=== PATIENT | male | born 1960 | race Caucasian/White ===

== ENCOUNTER 2023-03-12 05:03 | Inpatient (IN) | payer OTHER ==
[~2023-03-12] VITALS: Ht 177.8 cm; Wt 99.3 kg
[2023-03-12] VITALS (16 sets, daily range): BP systolic 111–163; BP diastolic 78–94; PULSE 61–80; RESP 14–22; TEMP 97.1–98; O2SAT 93–98
[2023-03-12] MEDS ORDERED: HEPARIN SODIUM (PORCINE) 5000 UNITS/ML 1ML VIAL IV ONE (05:15)
[2023-03-12] MEDS ORDERED: ONDANSETRON HCL 4 MG/2 ML VIAL IV ONE (05:15)
[2023-03-12] MEDS ORDERED: MORPHINE SULFATE 4 MG/ML SYR/VIAL IV ONE (05:15)
[2023-03-12 05:21] LABS: Basophils # (auto) 0.1 10 ^3/uL (0-0.2); Basophils % (auto) 0.8 % (0.0-2.0); Eosinophils # (auto) 0.1 10 ^3/uL (0-0.8); Eosinophils % (auto) 1.9 % (0.0-7.0); Hematocrit 44.8 % (41.0-53.0); Hemoglobin 15.7 g/dL (13.5-17.5); Lymphocytes # (auto) 1.5 10 ^3/uL (0.4-5.4); Lymphocytes % (auto) 24.5 % (10.0-50.0); Mean Corpuscular Hemoglobin 30.2 pg (28.0-32.0); Mean Corpuscular Hgb Conc. 35.1 g/dL (32.0-36.0); Mean Corpuscular Volume 86.2 fL (80.0-100.0); Monocytes # (auto) 0.4 10 ^3/uL (0-1.3); Monocytes % (auto) 5.8 % (0.0-12.0); Neutrophils # (auto) 4.2 10 ^3/uL (1.6-8.6); Nucleated Red Blood Cells % 0.2 %; Red Cell Distribution Width 13.3 % (11.8-14.3); White Blood Cell 6.2 10^3/uL (4.4-10.8)
[2023-03-12 05:35] LABS: Alanine Aminotransferase 25 U/L (7-40); Albumin 4.4 g/dL (3.2-4.8); Alkaline Phosphatase 58 U/L (46-116); Anion Gap 8 (5-15); Aspartate Aminotransferase 15 U/L (13-40); BUN/Creatinine Ratio 9.3 (10.0-20.0); Blood Urea Nitrogen 11 mg/dL (9-23); Calcium 9.2 mg/dL (8.7-10.4); Carbon Dioxide 25 mmol/L (20-30); Chloride 104 mmol/L (98-107); Glucose 288 mg/dL (74-106); Magnesium 1.7 mg/dL (1.6-2.6); Potassium 3.8 mmol/L (3.5-5.1); Sodium 137 mmol/L (136-145)
[2023-03-12 05:36] LABS: Bilirubin, Total 0.7 mg/dL (0.2-1.0); Total Protein 6.9 g/dL (5.7-8.2)
[2023-03-12] MEDS ORDERED: ANGIOMAX 250 MG VIAL IV ONE ×3 (05:40→08:25)
[2023-03-12] MEDS ORDERED: fentaNYL CITRATE 100 MCG/2 ML VL ONE (05:40)
[2023-03-12] MEDS ORDERED: LIDOCAINE 2%HCL (LOCAL ANESTH.) INJ 20ML MDV ONE (05:40)
[2023-03-12] MEDS ORDERED: VERAPAMIL 2.5MG/ML INJ 2ML VIAL IV ONE (05:40)
[2023-03-12] MEDS ORDERED: MIDAZOLAM HCL 2MG/2ML 2ml VIAL (1mg/ml) ONE (05:40)
[2023-03-12 05:41] LABS: INR 1.04 (0.9-1.15); Partial Thromboplastin Time 24.2 SEC (24.5-34.5); Prothrombin Time 10.9 sec (9.3-11.8)
[2023-03-12] MEDS ORDERED: IODIXANOL 320MG/ML 100ML BTL IV ONE ×3 (05:41→06:56)
[2023-03-12] MEDS ORDERED: SODIUM CHL 0.9% 50 ML ONE ×3 (05:41→08:25)
[2023-03-12] MEDS ORDERED: HEPARIN SODIUM (PORCINE) 5000 UNITS/ML 1ML VIAL ONE (05:43)
[2023-03-12] MEDS ORDERED: hydrALAZINE HCL 20 MG/ML VL ONE (06:14)
[2023-03-12] MEDS ORDERED: ATROPINE SULF 1 MG/10ml SYR ONE (06:25)
[2023-03-12] MEDS ORDERED: ADENOSINE 6 MG/2 ML INJ IV ONE (06:26)
[2023-03-12] MEDS ORDERED: TICAGRELOR 90 MG TAB ONE (06:42)
[2023-03-12] MEDS ORDERED: ONDANSETRON HCL 4 MG/2 ML VIAL ONE (06:42)
[2023-03-12] MEDS ORDERED: MORPHINE SULFATE INJ 2 MG/ml SYRG IV PRN (07:00)
[2023-03-12] MEDS ORDERED: NITROGLYCERIN 0.4 MG SL TAB SL PRN (07:00)
[2023-03-12] MEDS ORDERED: MAGNESIUM SULFATE 1GM/100ML 100 ML IV ONE (08:15)
[2023-03-12 09:07] LABS: Cholesterol 178 mg/dL (< 200); Triglycerides 296 mg/dL (< 150)
[2023-03-12 09:08] LABS: LDL Cholesterol 110 mg/dL (< 100)
[2023-03-12 09:09] LABS: HDL Cholesterol 37 mg/dL (40-59)
[2023-03-12] MEDS: ASPirin 81 mg TAB PO SCH (10:59)
[2023-03-12] MEDS: LISINOPRIL 10 MG TAB PO SCH (10:59)
[2023-03-12] MEDS: TICAGRELOR 90 MG TAB PO SCH ×2 (11:00→21:40)
[2023-03-12] MEDS: METOPROLOL TARTRATE 25 MG TAB PO SCH ×2 (11:01→21:45)
[2023-03-12] MEDS ORDERED: DEXTROSE (50%) 50ML SYRG IV PRN (12:15)
[2023-03-12] MEDS: InsuLIN REG 1unit/0.01ml Soln (100units/ml) SC SCH (17:00)
[2023-03-12] MEDS: ACCU-CHEK COMFORT CURVE STRIP VI SCH ×2 (17:00→21:49)
[2023-03-12] MEDS ORDERED: ATORVASTATIN 20 MG TAB PO SCH (22:00)
[2023-03-12] MEDS ORDERED: InsuLIN REG 1unit/0.01ml Soln (100units/ml) SC SCH (22:00)
[2023-03-13 05:00] VITALS: BP 154/88; PULSE 74; RESP 18; TEMP 97.8; O2SAT 94
[2023-03-13] MEDS: ACCU-CHEK COMFORT CURVE STRIP VI SCH ×2 (06:17→11:30)
[2023-03-13] MEDS: InsuLIN REG 1unit/0.01ml Soln (100units/ml) SC SCH ×2 (06:19→11:30)
[2023-03-13 06:21] LABS: Anion Gap 6 (5-15); Carbon Dioxide 28 mmol/L (20-30); Chloride 104 mmol/L (98-107); Potassium 3.8 mmol/L (3.5-5.1); Sodium 138 mmol/L (136-145)
[2023-03-13 06:22] LABS: Calcium 9.1 mg/dL (8.5-10.1)
[2023-03-13 06:27] LABS: BUN/Creatinine Ratio 11.4 (10.0-20.0); Blood Urea Nitrogen 14 mg/dL (9-23)
[2023-03-13 06:32] LABS: Glucose 160 mg/dL (74-106)
[2023-03-13 07:43] LABS: Basophils # (auto) 0 10 ^3/uL (0-0.2); Basophils % (auto) 0.5 % (0.0-2.0); Eosinophils # (auto) 0.1 10 ^3/uL (0-0.8); Eosinophils % (auto) 0.9 % (0.0-7.0); Lymphocytes # (auto) 1.7 10 ^3/uL (0.4-5.4); Lymphocytes % (auto) 18.3 % (10.0-50.0); Mean Corpuscular Hemoglobin 30.7 pg (28.0-32.0); Mean Corpuscular Hgb Conc. 35.6 g/dL (32.0-36.0); Mean Corpuscular Volume 86.2 fL (80.0-100.0); Monocytes # (auto) 0.7 10 ^3/uL (0-1.3); Neutrophils # (auto) 6.7 10 ^3/uL (1.6-8.6); Neutrophils % (auto) 72.3 % (37.0-80.0); Nucleated Red Blood Cells % 0.3 %; Red Blood Cells 4.87 10^6/uL (4.5-5.90); Red Cell Distribution Width 13.2 % (11.8-14.3); White Blood Cell 9.2 10^3/uL (4.4-10.8)
[2023-03-13 08:00] VITALS: PULSE 80; RESP 16
[2023-03-13] MEDS: ASPirin 81 mg TAB PO SCH (08:57)
[2023-03-13] MEDS: TICAGRELOR 90 MG TAB PO SCH (08:57)
[2023-03-13] MEDS: LISINOPRIL 10 MG TAB PO SCH (08:58)
[2023-03-13 09:08] VITALS: BP 151/97; PULSE 111; RESP 16; TEMP 97.9; O2SAT 92
[2023-03-13] MEDS ORDERED: METOPROLOL TARTRATE 25 MG TAB PO SCH (10:00)
[2023-03-13] MEDS ORDERED: MET25T PO (12:01)
[2023-03-13] MEDS ORDERED: ASPI-325 PO (12:01)
[2023-03-13] MEDS ORDERED: ATOR20TA50 PO (12:01)
[2023-03-13] MEDS ORDERED: TICA90TA PO ×3 (12:01→14:22)
[2023-03-13] MEDS ORDERED: LISI10TA34 PO (12:01)
[2023-03-13] MEDS ORDERED: METF-370 PO (12:01)
[2023-03-13 12:15] VITALS: BP 151/97; PULSE 92; TEMP 36.6
[2023-03-13 13:00] VITALS: BP 155/99; PULSE 92; RESP 17; TEMP 98.5; O2SAT 99
== END 2023-03-13 14:45 | disposition home or self-care (01) | DRG 247 ==
LOC: ER 05:03 → EDBD 05:03 → TELE 06:52 → TELE-EAST 10:17
PROVIDERS: ADMIT Internal Medicine; ATTEND Internal Medicine
PROC: 4A023N7 Measurement of Cardiac Sampling and Pressure, Left Heart, Percutaneous Approach (ICD-10-PCS; principal; 2023-03-12)
PROC: 027034Z Dilation of Coronary Artery, One Artery with Drug-eluting Intraluminal Device, Percutaneous Approach (ICD-10-PCS; 2023-03-12)
PROC: B211YZZ Fluoroscopy of Multiple Coronary Arteries using Other Contrast (ICD-10-PCS; 2023-03-12)
PROC: B215YZZ Fluoroscopy of Left Heart using Other Contrast (ICD-10-PCS; 2023-03-12)
DX: I21.19 ST elevation (STEMI) myocardial infarction involving other coronary artery of inferior wall (principal); E11.9 Type 2 diabetes mellitus without complications; I10 Essential (primary) hypertension; E78.5 Hyperlipidemia, unspecified; E66.9 Obesity, unspecified; Z85.6 Personal history of leukemia; Z68.31 Body mass index [BMI] 31.0-31.9, adult
CPT/HCPCS: 36415; 71045; 80048; 80053; 80061; 82962; 83036; 83735; 83880; 84443; 84484; 85025; 85610; 85730; 93005; 93306; 96374; 96375; 99152; G0378; J0153; J1815; J2250; J2405; Q9967